=== PATIENT | male | born 1995 ===

== ENCOUNTER 2017-03-05 09:17 | Emergency (ER) | payer SELFPAY ==
[2017-03-05 09:26] VITALS: BMI 25.9
[2017-03-05 09:28] VITALS: RESP 18; TEMP 98.1
--- NOTE | 2017-03-05 10:09 | RAD ---
PROCEDURE: Left Ankle Radiographs. HISTORY: Left ankle pain COMPARISON: None FINDINGS: BONES: Bone alignment and mineralization are normal. There is no acute displaced fracture or bone destruction. JOINTS: Normal. No osteoarthritis. Ankle mortise maintained. Talar dome intact SOFT TISSUES: Normal. OTHER FINDINGS: None. IMPRESSION: No acute fracture or dislocation.
--- NOTE | 2017-03-05 10:26 | C.PDOC ---
History Of Present Illness 22-year-old male, presents to the emergency department with complaints of left ankle pain. Patient states he was ice skating yesterday, during which he sustained an inversion ankle injury. Pain is worse with walking. States he is taking Tylenol with minimal relief. Denies numbness/weakness. Time Seen by Provider: 03/05/17 09:33 Chief Complaint (Nursing): Lower Extremity Problem/Injury History Per: Patient History/Exam Limitations: no limitations Onset/Duration Of Symptoms: Hrs Current Symptoms Are (Timing): Still Present Severity: Moderate Past Medical History Reviewed: Historical Data, Nursing Documentation, Vital Signs Vital Signs: Last Vital Signs Temp 98.1 F 03/05/17 11:30 Pulse 66 03/05/17 11:30 Resp 18 03/05/17 11:30 BP 123/82 03/05/17 11:30 Pulse Ox 98 03/05/17 11:46 - [facility] Procedures APPLICATION OF SPLINT (08/16/13) Family History: States: No Known Family Hx - Social History Hx Tobacco Use: No Hx Alcohol Use: No Hx Substance Use: No - Immunization History Hx Tetanus Toxoid Vaccination: No Hx Influenza Vaccination: No Hx Pneumococcal Vaccination: No Review Of Systems Except As Marked, All Systems Reviewed And Found Negative. Constitutional: Negative for: Fever Gastrointestinal: Negative for: Vomiting Musculoskeletal: Positive for: Other (L ankle pain) Neurological: Negative for: Weakness, Numbness Physical Exam - Physical Exam Appears: Non-toxic, No Acute Distress Skin: Warm, Dry, No Rash Head: Atraumatic, Normacephalic Neck: Normal ROM Extremity: Normal ROM, Tenderness, Capillary Refill (<2 seconds), No Deformity, No Swelling, Other (Mild tenderness to palpation of lateral malleolus) Pulses: Left Dorsalis Pedis: Normal, Right Dorsalis Pedis: Normal Neurological/Psych: Oriented x3, Normal Speech ED Course And Treatment O2 Sat by Pulse Oximetry: 98 (on RA) Pulse Ox Interpretation: Normal - Other Rad XR ANKLE X-Ray: Viewed By Me, Read By Radiologist (No acute fracture/dislocation) Progress Note: XR L Ankle ordered and reviewed. Pt will be discharged home for outpateint f/u in clinic Disposition Counseled Patient/Family Regarding: Diagnosis, Need For Followup, Rx Given - Disposition Referrals: Luis Nassar III, MD [Staff Provider] - [facility] [Outside] [facility] [Outside] Disposition: HOME/ ROUTINE Disposition Time: 10:45 Condition: STABLE Additional Instructions: FOLLOW UP WITH ORTHOPEDICS OR PODIATRY WITHIN 1 WEEK USE MEDICATIONS NEEDED RETURN TO ER IF SYMPTOMS WORSEN Prescriptions: Naproxen 375 mg PO BID PRN #20 tablet PRN Reason: pain Instructions: Ankle Sprain (ED), Crutch Instructions (ED), Ankle Stirrup Splint (ED) Forms: [employer] (Syriac), Work Excuse Print Language: CITIZEN OF [place] - Clinical Impression Clinical Impression: Left ankle sprain - Scribe Statement The provider has reviewed the documentation as recorded by the Scribe (Laurent Junior) All medical record entries made by the Scribe were at my direction and personally dictated by me. I have reviewed the chart and agree that the record accurately reflects my personal performance of the history, physical exam, medical decision making, and the department course for this patient. I have also personally directed, reviewed, and agree with the discharge instructions and disposition.
[2017-03-05 11:30] VITALS: BP 123/82; PULSE 66
[2017-03-05 11:47] VITALS: O2SAT 98
== END 2017-03-05 11:42 | disposition home or self-care (01) ==
LOC: C.ER 09:17
DX: S93.402A Sprain of unspecified ligament of left ankle, initial encounter (principal); Y93.21 Activity, ice skating
CPT/HCPCS: 73610; 97116; 97161; 99284; G8978; G8979; G8980